=== PATIENT | female | born 1970 ===

== ENCOUNTER 2018-12-10 12:38 | Outpatient (REF) | payer BC, SELFPAY ==
[2018-12-10 21:20] LABS: Anion Gap 10.5 mmol/L (3-11); BUN 13 mg/dL (7-18); CO2 26.5 mmol/L (21.0-32.0); CREATININE 0.72 mg/dL (0.55-1.02); Calcium 8.8 mg/dL (8.5-10.1); Chloride 105 mmol/L (98-107); Glucose 90 mg/dL (70-100); Potassium 3.5 mmol/L (3.5-5.1); Sodium 142 mmol/L (136-145)
== END 2018-12-10 12:58 ==
LOC: NCHCN 12:38
PROVIDERS: PCP Nurse Practitioner Family; Visit Provider Registered Nurse
DX: Z79.899 Other long term (current) drug therapy (principal)
CPT/HCPCS: 80048

== ENCOUNTER 2019-11-15 11:27 | Outpatient (REF) | payer OTHER, SELFPAY ==
[2019-11-15 21:04] LABS: Anion Gap 10.8 mmol/L (3-11); BUN 17 mg/dL (7-18); CO2 25.2 mmol/L (21.0-32.0); CREATININE 0.74 mg/dL (0.55-1.02); Calcium 8.9 mg/dL (8.5-10.1); Chloride 106 mmol/L (98-107); Glucose 92 mg/dL (74-106); Magnesium 1.9 mg/dL (1.8-2.4); Potassium 3.7 mmol/L (3.5-5.1); Sodium 142 mmol/L (136-145)
[2019-11-15 21:25] LABS: Hemoglobin A1C 5.2 % (3.8-5.6)
== END 2019-11-15 11:47 ==
LOC: NCHCN 11:27
PROVIDERS: PCP Registered Nurse; Visit Provider Registered Nurse
DX: E66.9 Obesity, unspecified (principal); Z83.3 Family history of diabetes mellitus
CPT/HCPCS: 80048; 83036; 83735

== ENCOUNTER 2020-05-13 19:28 | Outpatient (REF) | payer OTHER, SELFPAY ==
[2020-05-13 14:31] LABS: Potassium 3.6 mmol/L (3.5-5.1); TSH 1.91 uIU/mL (0.36-3.74)
== END 2020-05-13 19:48 ==
LOC: NCHCN 19:28
PROVIDERS: PCP Registered Nurse; Visit Provider Registered Nurse
DX: R53.83 Other fatigue (principal); E88.01 Alpha-1-antitrypsin deficiency; J45.40 Moderate persistent asthma, uncomplicated; H81.02 Meniere's disease, left ear
CPT/HCPCS: 84132; 84443